=== PATIENT | female | born 1970 | race Caucasian/White ===

== ENCOUNTER 2016-08-03 06:08 | Observation (INO) | payer OTHER ==
[~2016-08-03 06:08] MED LIST: Buffered Lidocaine 0.9% SYRIN* 5 ML/SYR SYRINGE INTRADERM ONE; Famotidine IV* 10 MG/ML 2 ML (20 mg) IV ONE
[2016-08-03] MEDS ORDERED: Buffered Lidocaine 0.9% SYRIN* 5 ML/SYR SYRINGE ONE (06:18)
[2016-08-03] MEDS ORDERED: Famotidine IV* 10 MG/ML 2 ML (20 mg) ONE (06:18)
[2016-08-03 07:07] LABS: Hematocrit 41 % (35-47); Mean Corpuscular HGB Conc 34 g/dl (31-36); Mean Corpuscular Hemoglobin 34 pg (27-31); Mean Corpuscular Volume 99 fL (80-97); Mean Platelet Volume 9 um3 (7.4-10.4); Red Blood Count 4.17 10^6/ul (4.0-5.4); Red Cell Distribution Width 13 % (10.5-15); White Blood Count 6.4 10^3/ul (3.5-10.8)
[2016-08-03] MEDS ORDERED: Bupivacaine 0.5% W/EPI SDV* 10 ML VIAL INJ ONE ×2 (07:23)
[2016-08-03] MEDS ORDERED: Dexamethasone IV* 4 MG/ML 1 ML (4 MG) ONE (07:37)
[2016-08-03] MEDS ORDERED: DiMENhydriNATE IV* 50 MG/ML VIAL ONE (07:37)
[2016-08-03] MEDS ORDERED: Propofol* 10 MG/ML 20 ML BTL IV PUSH ONE (07:37)
[2016-08-03] MEDS ORDERED: Midazolam* 1 MG/ML 5 ML VIAL (5 MG) ONE (07:37)
[2016-08-03] MEDS ORDERED: Rocuronium* 10 MG/ML VIAL ONE (07:37)
[2016-08-03] MEDS ORDERED: Lidocaine 2% PF * 5 ML VIAL ONE (07:37)
[2016-08-03] MEDS ORDERED: fentaNYL* 50 MCG/ML 2 ML VIAL (100 MCG VIAL) ONE ×2 (07:37→08:20)
[2016-08-03] MEDS ORDERED: Succinylcholine* 20 MG/ML 10 ML VIAL ONE (07:37)
[2016-08-03] MEDS ORDERED: Ketorolac INJ* 30 MG/ML 1 ML VIAL ONE (07:37)
[2016-08-03] MEDS ORDERED: Ondansetron INJ* 2 MG/ML VIAL ONE (07:37)
[2016-08-03] MEDS ORDERED: Clindamycin 900 MG IVPREMIX(* 900 MG/50 ML SDV IV ONE (07:47)
[2016-08-03] MEDS ORDERED: Midazolam* 1 MG/ML 2 ML VIAL (2 MG) ONE (08:09)
[2016-08-03] MEDS ORDERED: HYDROmorphone* 1 MG/ML 1 ML SYR ONE ×2 (08:55→10:51)
[2016-08-03] MEDS ORDERED: Acetaminophen IV 1GM/100ML * 100 ML IVPB ONE (09:16)
[2016-08-03] MEDS ORDERED: DiMENhydriNATE IV* 50 MG/ML VIAL IV PUSH PRN (09:16)
[2016-08-03] MEDS ORDERED: HYDROmorphone* 1 MG/ML 1 ML SYR IV PRN ×2 (09:16→11:57)
[2016-08-03] MEDS ORDERED: Acetaminophen IV 1GM/100ML * 100 ML ONE (10:05)
[2016-08-03] MEDS ORDERED: oxyCODONE TAB* 5 MG TAB ONE ×2 (10:27→10:51)
[2016-08-03] MEDS: oxyCODONE TAB* 5 MG TAB PO PRN ×2 (10:28→10:51)
[2016-08-03] MEDS ORDERED: ALPRAZolam TAB* 0.5 MG PO PRN (12:52)
[2016-08-03] MEDS: Ibuprofen TAB* 600 MG PO SCH ×2 (15:30→20:56)
[2016-08-03] MEDS: Omeprazole CAP* 20 MG PO SCH (16:48)
[2016-08-03] MEDS: oxyCODONE/Acetamin 5/325 MG* TAB PO PRN ×2 (16:51→20:56)
[2016-08-03 17:26] LABS: Hematocrit 38 % (35-47); Hemoglobin 12.4 g/dl (12.0-16.0)
[2016-08-03] MEDS ORDERED: Cetirizine* 10 MG TAB PO SCH (18:00)
[2016-08-04] MEDS: Ibuprofen TAB* 600 MG PO SCH ×2 (03:37→09:25)
[2016-08-04] MEDS: oxyCODONE/Acetamin 5/325 MG* TAB PO PRN ×2 (06:16→10:17)
[2016-08-04] MEDS: Omeprazole CAP* 20 MG PO SCH (07:19)
[2016-08-04 07:32] VITALS: BP 129/80
--- NOTE | 2016-08-04 07:41 | OP ---
OPERATIVE REPORT: DATE OF OPERATION: 08/03/16 DATE OF : 70 SURGEON: Mumtaz Mcclelland MD [employer]: Dr. Polk. ANESTHESIA: General endotracheal tube. PRE-OP DIAGNOSES: Endometriosis, menorrhagia, and anemia. POST-OP DIAGNOSES: Endometriosis, menorrhagia, and anemia. OPERATIVE PROCEDURE: Supracervical hysterectomy and bilateral salpingo- oophorectomy. ESTIMATED BLOOD LOSS: 100 cc. SPECIMENS: Include uterus, tubes, and ovaries. COMPLICATIONS: None. FINDINGS: On laparoscopy, the anterior bladder flap appeared normal with some adhesions on the anterior vesicoperitoneal fold to the uterus. Posterior cul-de - sac was inflamed, but appeared normal. I did not see any obvious endometrial implants. Both ovaries appeared normal and the tubes fimbriated ends looked normal. Liver surface was smooth. The bowel appeared normal. DESCRIPTION OF PROCEDURE: The patient identified and procedure identified as a laparoscopic supracervical hysterectomy and BSO. The patient was taken to the operating room and prepped and draped in the usual fashion in the dorsal lithotomy position under general anesthesia. A [employer] uterine manipulator was placed into the uterus. A small infraumbilical incision was made and carried down through fat, fascia, and peritoneum. The GelPOINT mini was placed along with the port sites and the abdomen was insufflated to 15 mmHg. The above findings were noted. The left round ligament was grasped and ligated using the LigaSure. The infundibulopelvic ligament on the left side was grasped and ligated x2 and then incised using the LigaSure. The broad ligament was ligated using cautery and then incised. A bladder flap was created via sharp and blunt dissection and taking care to dissect the bladder carefully off the anterior vesicoperitoneal fold. The left uterine vessels were ligated using the LigaSure. Next, attention was then turned to the right side. The right round ligament was ligated using LigaSure and the infundibulopelvic ligament was ligated x2 and then using LigaSure and then incised. The broad ligament was incised using the LigaSure. A bladder flap was created via sharp and blunt dissection, and the bladder was dissected caudally. The right uterine vessels were ligated using the LigaSure x3 and then incised close to the uterus. At this point, further __cautery was carried out on the left uterine vessels. The SupraLoop was placed through one of the GelPOINT mini sites and got around the cervix at the cervicouterine junction above the uterine vessels placed on a 100 pure cut. The SupraLoop was used to excise the uterus from the cervix with care taken to make sure that there was no bowel or any other organs in the SupraLoop during its use. Hemostasis was provided using the LigaSure on the left uterine vessels. After the LigaSure there was a small bleed around that site. Copious irrigation was utilized and suctioned out. The GelPOINT mini was removed and a bag was placed. There were three attempts to place the uterus within the bag and each time the uterus fell out of the bag. Because the uterus was somewhat small, decision was made just to proceed with morcellation exteriorly using scissors, and care was taken to make sure that it was all taken out in one piece and that there was no pieces left inside. This was done against the GelPOINT mini Richard and so it was felt that the morcellation was well contained. Good hemostasis was verified using the LigaSure after the uterus has been excised. The fascia was then closed with 0 Polysorb in a running fashion. Good hemostasis was seen in the subcu and the skin was closed with 4-0 Vicryl in a subcuticular fashion and with the skin glue. All sponge and instrument counts were correct, and the patient was returned to the recovery room in stable condition. [id number]/[facility] #: [id number] KAILA
[2016-08-04] MEDS ORDERED: Cyanocobalamin TAB* 500 MCG PO SCH (09:00)
== END 2016-08-04 10:00 | disposition home or self-care (01) ==
LOC: OR 06:08 → SSU 11:28
PROVIDERS: ADMIT Obstetrics & Gynecology; ATTEND Obstetrics & Gynecology
PROC: 0UT24ZZ Resection of Bilateral Ovaries, Percutaneous Endoscopic Approach (ICD-10-PCS; 2016-08-03)
PROC: 0UT74ZZ Resection of Bilateral Fallopian Tubes, Percutaneous Endoscopic Approach (ICD-10-PCS; 2016-08-03)
PROC: 0UT94ZZ Resection of Uterus, Percutaneous Endoscopic Approach (ICD-10-PCS; principal; 2016-08-03 07:45)
DX: N80.9 Endometriosis, unspecified (principal); N92.0 Excessive and frequent menstruation with regular cycle; D64.9 Anemia, unspecified; Z88.1 Allergy status to other antibiotic agents; Z88.2 Allergy status to sulfonamides; Z88.0 Allergy status to penicillin; Z88.8 Allergy status to other drugs, medicaments and biological substances
CPT/HCPCS: 36415; 85014; 85018; 85025; 86850; 86900; 86901; 88307; A9270-GY; G0378; J0330; J1100; J1170; J1240; J1580; J1885; J2250; J2405; J2704; J3010

== ENCOUNTER 2018-03-31 22:01 | Emergency (ER) | payer OTHER ==
[2018-04-01] MEDS ORDERED: oxyCODONE/Acetamin 5/325 MG* TAB PO ONE (00:57)
[2018-04-01 01:41] LABS: Urine Appearance Clear; Urine Bacteria Absent (Absent); Urine Bilirubin Negative (Negative); Urine Blood Negative (Negative); Urine Color Yellow; Urine Glucose Negative (Negative); Urine Ketones Negative (Negative); Urine Nitrite Negative (Negative); Urine Protein Negative (Negative); Urine Red Blood Cell Absent (Absent); Urine Specific Gravity 1.004 (1.010-1.030); Urine Squamous Epithelial Cell Present (Absent); Urine Urobilinogen Negative (Negative); Urine White Blood Cell 2+(11-20/hpf) (Absent)
[2018-04-01] MEDS ORDERED: Nitrofurantoin Macrocrystals* 100 MG CAP PO ONE (02:25)
[2018-04-01 02:43] VITALS: BP 127/79
--- NOTE | 2018-04-01 02:57 | ED ---
Back Pain - HPI Summary HPI Summary: The patient is a 47 year old female who is presenting to the [facility] with a chief complaint of a lower back pain. The patient states that she has had back pain that is steady and maintainable for 1 year. The pain has worsened in her lower back since 1 week ago. The pain is also reported to be in the lower buttocks region. According to the patient, her rate of urination has also decreased and her frequency of urination has increased since the worsened lower back pain has started. The pain begins at her hip bone. The pain is also rated to be 2/10 in severity. The symptoms are alleviated by nothing. The symptoms are aggravated by nothing. - History of Current Complaint Chief Complaint: EDBackInjuryPain Stated Complaint: BACK PAIN/ABD PAIN Time Seen by Provider: 04/01/18 00:40 Hx Obtained From: Patient Onset/Duration: Gradual Onset, Lasting Weeks - 1 week, Still Present Timing: Constant Back Pain Location: Is Discrete @ - Lower back pain to buttocks Severity Initially: Mild Severity Currently: Mild Pain Intensity: 2 Pain Scale Used: 0-10 Numeric Aggravating Symptom(s): Nothing Alleviating Symptom(s): Nothing Associated Signs And Symptoms: Positive: Other - Frequent urination and lower "flow" of urine - Allergies/Home Medications Allergies/Adverse Reactions: Allergies Allergy/AdvReac Type Severity Reaction Status Date / Time amoxicillin [From Augmentin] Allergy Rash Verified 03/31/18 22:08 aspirin Allergy Bleeding Verified 03/31/18 22:08 cefdinir [From Omnicef] Allergy Rash Verified 03/31/18 22:08 cephalexin [From Keflex] Allergy Rash Verified 03/31/18 22:08 ciprofloxacin [From Cipro] Allergy Rash Verified 03/31/18 22:08 clavulanic acid Allergy Rash Verified 03/31/18 22:08 [From Augmentin] Sulfa (Sulfonamide Allergy Rash Verified 03/31/18 22:08 Antibiotics) Home Medications: Home Medications FLUoxetine CAP* [Prozac CAP*] 1 cap PO DAILY 04/01/18 [History Confirmed ] PMH/Surg Hx/FS Hx/Imm Hx Endocrine/Hematology History: Reports: Hx Anemia - low iron Denies: Hx Diabetes Cardiovascular History: Denies: Hx Hypertension, Hx Pacemaker/ICD, Other Cardiovascular Problems/ Disorders Respiratory History: Denies: Other Respiratory Problems/Disorders GI History: Reports: Hx Gastroesophageal Reflux Disease, Hx Irritable Bowel - not treated for Denies: Other GI Disorders Musculoskeletal History: Denies: Other Musculoskeletal History Sensory History: Reports: Hx Contacts or Glasses - glasses Denies: Hx Hearing Aid Opthamlomology History: Reports: Hx Contacts or Glasses - glasses Neurological History: Reports: Hx Headaches - chronic headaches Denies: Other Neuro Impairments/Disorders Psychiatric History: Reports: Hx Anxiety - on meds, Hx Depression - on meds, Hx Panic Disorder - GENERALIZED ANXIETY - Cancer History Hx Chemotherapy: No Hx Radiation Therapy: No - Surgical History Surgery Procedure, Year, and Place: TUBAL 1998. LAPARSCOPIC FOR ENDOMETRIOSIS. . HYSTERECTOMY. DEVIATED SEPTUM Hx Anesthesia Reactions: No Infectious Disease History: No Infectious Disease History: Denies: Traveled Outside the [place] in Last 30 Days - Family History Known Family History: Positive: Cardiac Disease, Hypertension - Social History Occupation: Employed Full-time Lives: With Family Alcohol Use: Daily Alcohol Amount: 2-4 PER DAY Hx Substance Use: No Substance Use Type: Reports: None Hx Tobacco Use: Yes Smoking Status (MU): Former Smoker Amount Used/How Often: PACK A DAY FOR 15 YRS Review of Systems Constitutional: Negative Eyes: Negative ENT: Negative Cardiovascular: Negative Respiratory: Negative Gastrointestinal: Negative Genitourinary: Other - Decreased urinary flow Positive: frequency Musculoskeletal: Other - Lower back pain; Buttocks pain Skin: Negative Neurological: Negative Psychological: Normal All Other Systems Reviewed And Are Negative: Yes Physical Exam - Summary Physical Exam Summary: VITAL SIGNS: Reviewed. GENERAL: Patient is a well-developed and nourished (FEMALE) who is lying comfortable in the stretcher. Patient is not in any acute respiratory distress. HEAD AND FACE: No signs of trauma. No ecchymosis, hematomas or skull depressions. No sinus tenderness. EYES: PERRLA, EOMI x 2, No injected conjunctiva, no nystagmus. EARS: Hearing grossly intact. Ear canals and tympanic membranes are within normal limits. MOUTH: Oropharynx within normal limits. NECK: Supple, trachea is midline, no adenopathy, no JVD, no carotid bruit, no c- spine tenderness, neck with full ROM. CHEST: Symmetric, no tenderness at palpation LUNGS: Clear to auscultation bilaterally. No wheezing or crackles. CVS: Regular rate and rhythm, S1 and S2 present, no murmurs or gallops appreciated. ABDOMEN: Soft, non-tender. No signs of distention. No rebound no guarding, and no masses palpated. Bowel sounds are normal. EXTREMITIES: FROM in all major joints, no edema, no cyanosis or clubbing. NEURO: Alert and oriented x 3. No acute neurological deficits. Speech is normal and follows commands. SKIN: Dry and warm Back: Tenderness over left lower buttocks Triage Information Reviewed: Yes Vital Signs On Initial Exam: Initial Vitals Temp Pulse Resp BP Pulse Ox 98.4 F 93 16 170/90 99 03/31/18 22:03 03/31/18 22:03 03/31/18 22:03 03/31/18 22:03 03/31/18 22:03 Vital Signs Reviewed: Yes Diagnostics - Vital Signs Vital Signs Temp Pulse Resp BP Pulse Ox 04/01/18 02:42 97.9 F 75 16 127/79 97 04/01/18 02:14 68 131/84 95 04/01/18 02:00 72 95 04/01/18 01:45 68 148/87 97 04/01/18 01:15 79 164/78 99 04/01/18 01:08 18 03/31/18 22:03 98.4 F 93 16 170/90 99 - Laboratory Lab Results: Lab Results 04/01/18 Range/Units 01:15 Urine Color Yellow Urine Appearance Clear Urine pH 6.0 (5-9) Ur Specific [place] 1.004 L (1.010-1.030) Urine Protein Negative (Negative) Urine Ketones Negative (Negative) Urine Blood Negative (Negative) Urine Nitrate Negative (Negative) Urine Bilirubin Negative (Negative) Urine Urobilinogen Negative (Negative) Ur Leukocyte Esterase 2+ A (Negative) Urine WBC (Auto) 2+(11-20/hpf) A (Absent) Urine RBC (Auto) Absent (Absent) Ur Squamous Epith Cells Present A (Absent) Urine Bacteria Absent (Absent) Urine Glucose Negative (Negative) Lab Statement: Any lab studies that have been ordered have been reviewed, and results considered in the medical decision making process. - CT Abdominal/Pelvic CT CT Interpretation Completed By: Radiologist Summary of CT Findings: A/P CT reveals as per radiologist No CT findings to correlate with patient's symptomatology. Specifically no. obstructing renal or ureteral calculi. The ED Physician has reviewed this radiology report Lumbar Spine CT CT Interpretation Completed By: Radiologist Summary of CT Findings: Lumbar Spine CT as per radiologist Mild multilevel lumbar spondylopathy. The ED Physician has reviewed this radiology report Back Pain Course/Dx - Course Course Of Treatment: The patient is a 47 year old female who is presenting to the [facility] with a chief complaint of lower back pain that is also present at the buttocks. In the [facility], the patient had a Abd/pelvic CT and Lumbar Spine CT taken. The patient has a history of chronic back pain for one year. The urinanalysis showed remarkable findings consistent with a UTI. The patient will be given antibiotics and discharged home with a dx of UTI and back pain. We recommend a follow up with her primary care physician in 1 to 2 days. - Diagnoses Provider Diagnoses: UTI (urinary tract infection), Back pain Discharge - Sign-Out/Discharge Documenting (check all that apply): Patient Departure - Discharge Home Patient Received Moderate/Deep Sedation with Procedure: No - Discharge Plan Condition: Stable Disposition: HOME Prescriptions: Nitrofurantoin Monohyd/M-Cryst [Macrobid 100 mg Capsule] 100 mg PO BID #14 cap oxyCODONE/Acetamin 5/325 MG* [Percocet 5/325 TAB*] 1 tab PO Q6H PRN #10 tab MDD 4 PRN Reason: Pain Patient Education Materials: Urinary Tract Infection in Women (ED), Back Pain ( ED) Referrals: Vira Bundy NP [Primary Care Provider] - Additional Instructions: RETURN TO THE EMERGENCY DEPARTMENT FOR CHANGING OR WORSENING SYMPTOMS. FOLLOW UP WITH Primary care physician IN 1-2 DAYS. - Attestation Statements Document Initiated by Akila: Yes Documenting Scribe: Jsoh Garcia Provider For Whom Akila is Documenting (Include Credential): Dr. Elin Wilburn Attestation: Josh Christiansen scribed for Dr. Ace Rosario on 04/01/18 at 0307. Status of Scribe Document: Ready
== END 2018-04-01 02:42 | disposition home or self-care (01) ==
LOC: ED 22:01
DX: N39.0 Urinary tract infection, site not specified (principal); M54.9 Dorsalgia, unspecified; R10.84 Generalized abdominal pain; Z87.891 Personal history of nicotine dependence; Z79.82 Long term (current) use of aspirin; Z88.0 Allergy status to penicillin; Z88.2 Allergy status to sulfonamides; F17.210 Nicotine dependence, cigarettes, uncomplicated
CPT/HCPCS: 72131; 74176; 81003; 81015; 87086; 99283; A9270-GY

== ENCOUNTER 2018-04-03 09:49 | Emergency (ER) | payer OTHER ==
[2018-04-03 11:11] VITALS: BP 131/82
--- NOTE | 2018-04-03 17:47 | ED ---
Back Pain - HPI Summary HPI Summary: Patient is a 47-year-old male who presents emergency department for ongoing left lower back pain that radiates to her left hip/groin. Patient states she is a history of some mild low back pain but not to this extent. She denies recent injuries or falls. She notes she does sit a lot at work. Patient was seen in the ER 3 days ago for similar complaints and had a urinalysis, CT scan of abdomen and pelvis as well as CT scan of lumbar spine. Patient was placed on antibiotics for possible UTI. Patient states she is prescribed Percocet but has not been taking them because they make her feel sick. Patient also notes that left lower pain radiates into her left upper thigh with intermittent pins and needles. She otherwise denies leg weakness, bowel or bladder incontinence or retention, fever, vomiting, diarrhea. History of hysterectomy. Symptoms are mild in severity. Movement makes symptoms worse. Nothing makes symptoms better. - History of Current Complaint Chief Complaint: EDUrogenitalProblems Stated Complaint: ABD PAIN Time Seen by Provider: 04/03/18 10:03 Pain Intensity: 8 - Allergies/Home Medications Allergies/Adverse Reactions: Allergies Allergy/AdvReac Type Severity Reaction Status Date / Time amoxicillin [From Augmentin] Allergy Rash Verified 04/03/18 10:01 aspirin Allergy Bleeding Verified 04/03/18 10:01 cefdinir [From Omnicef] Allergy Rash Verified 04/03/18 10:01 cephalexin [From Keflex] Allergy Rash Verified 04/03/18 10:01 ciprofloxacin [From Cipro] Allergy Rash Verified 04/03/18 10:01 clavulanic acid Allergy Rash Verified 04/03/18 10:01 [From Augmentin] Sulfa (Sulfonamide Allergy Rash Verified 04/03/18 10:01 Antibiotics) Home Medications: Home Medications Ascorbic Acid [Vitamin C] 1,000 mg PO DAILY 04/03/18 [History Confirmed 04/03/18 ] Benzonatate CAP* [Tessalon 100 MG CAP*] 1 - 2 cap PO TID PRN 04/03/18 [History Confirmed 04/03/18] Calcium + D Soft Chewable Tab 1 tab PO DAILY 04/03/18 [History Confirmed ] PMH/Surg Hx/FS Hx/Imm Hx Previously Healthy: Yes Endocrine/Hematology History: Reports: Hx Anemia - low iron Denies: Hx Diabetes Cardiovascular History: Denies: Hx Hypertension, Hx Pacemaker/ICD, Other Cardiovascular Problems/ Disorders Respiratory History: Denies: Other Respiratory Problems/Disorders GI History: Reports: Hx Gastroesophageal Reflux Disease, Hx Irritable Bowel - not treated for Denies: Other GI Disorders Musculoskeletal History: Denies: Other Musculoskeletal History Sensory History: Reports: Hx Contacts or Glasses - glasses Denies: Hx Hearing Aid Opthamlomology History: Reports: Hx Contacts or Glasses - glasses Neurological History: Reports: Hx Headaches - chronic headaches Denies: Other Neuro Impairments/Disorders Psychiatric History: Reports: Hx Anxiety - on meds, Hx Depression - on meds, Hx Panic Disorder - GENERALIZED ANXIETY - Cancer History Hx Chemotherapy: No Hx Radiation Therapy: No - Surgical History Surgery Procedure, Year, and Place: TUBAL 1998. LAPARSCOPIC FOR ENDOMETRIOSIS. . HYSTERECTOMY. DEVIATED SEPTUM Hx Anesthesia Reactions: No Infectious Disease History: No Infectious Disease History: Denies: Traveled Outside the [place] in Last 30 Days - Family History Known Family History: Positive: Cardiac Disease, Hypertension, Non-Contributory - Social History Occupation: Employed Full-time Lives: With Family Alcohol Use: Daily Alcohol Amount: 2-4 PER DAY Hx Substance Use: No Substance Use Type: Reports: None Hx Tobacco Use: Yes Smoking Status (MU): Former Smoker Amount Used/How Often: PACK A DAY FOR 15 YRS Review of Systems Constitutional: Negative Negative: Fever, Chills Cardiovascular: Negative Respiratory: Negative Gastrointestinal: Negative Negative: Abdominal Pain, Vomiting, Diarrhea Genitourinary: Negative Negative: dysuria, frequency, flank pain Positive: Other - left low back pain Skin: Negative Positive: Paresthesia - Left upper leg . Negative: Weakness, Numbness All Other Systems Reviewed And Are Negative: Yes Physical Exam Triage Information Reviewed: Yes Vital Signs On Initial Exam: Initial Vitals Temp Pulse Resp BP Pulse Ox 98.7 F 96 16 135/81 97 04/03/18 09:52 04/03/18 09:52 04/03/18 09:52 04/03/18 09:52 04/03/18 09:52 Vital Signs Reviewed: Yes Appearance: Positive: Well-Appearing - Pt. lying in bed flat in NAD. present. Skin: Positive: Warm, Dry Head/Face: Positive: Normal Head/Face Inspection Eyes: Positive: Normal, EOMI Neck: Positive: Supple Respiratory/Lung Sounds: Positive: Clear to Auscultation, Breath Sounds Present Cardiovascular: Positive: Normal, RRR Abdomen Description: Positive: Nontender, Soft Musculoskeletal: Positive: Other - Mild left flank pain. Pain over left SI joint. 5/5 strength in bilateral LEs. Neurological: Positive: Normal, CN Intact II-III Psychiatric: Positive: Affect/Mood Appropriate Diagnostics - Vital Signs Vital Signs Temp Pulse Resp BP Pulse Ox 04/03/18 11:10 97.8 F 71 16 131/82 96 04/03/18 09:52 98.7 F 96 16 135/81 97 - Laboratory Lab Statement: Any lab studies that have been ordered have been reviewed, and results considered in the medical decision making process. Back Pain Course/Dx - Course Course Of Treatment: Patient presenting for ongoing lower back pain. Urine culture from 3 days ago is negative for growth. She is afebrile and well- appearing. She is no neurological deficits on exam. Under CT of her lumbar spine she did have degenerative changes and mild disc bulge at L4-L5. Suspect patient's pain and radicular pain is secondary to lumbar etiology. We'll start patient on a course of anti-inflammatories and steroids. Patient is agreeable with this plan. Work excuse given. Advised to apply warm compresses, avoid heavy lifting. To call family doctor today for a close follow-up appointment. To return to the ER symptoms change or worsen. Patient understands and agrees with this plan. - Diagnoses Differential Diagnosis/HQI/PQRI: Positive: Arthritis, Herniated Disc, Strain, Sprain Provider Diagnoses: Lumbar strain Discharge - Sign-Out/Discharge Documenting (check all that apply): Patient Departure Patient Received Moderate/Deep Sedation with Procedure: No - Discharge Plan Condition: Good Disposition: HOME Prescriptions: methylPREDNISolone [Medrol Dosepak 4 MG*] 0 mg PO .SEE MARISA INSTRUCTION #1 tab Patient Education Materials: Low Back Strain (ED), Lumbar Radiculopathy (ED), Lower Back Exercises (ED) Forms: *Work Release Referrals: Vira Bundy NP [Primary Care Provider] - Additional Instructions: Call PCP today to schedule a close follow up appointment Take steroid pack as directed Ibuprofen 600mg every 8 hours x 1 week Apply warm compresses to back Gentle stretching and massage Stop antibiotic--urine culture was negative Return to ER if symptoms change or worsen - Billing Disposition and Condition Condition: GOOD Disposition: Home
== END 2018-04-03 11:10 | disposition home or self-care (01) ==
LOC: ED 09:49
DX: S39.012A Strain of muscle, fascia and tendon of lower back, initial encounter (principal); R10.9 Unspecified abdominal pain; M54.2 Cervicalgia; Z88.0 Allergy status to penicillin; Z88.2 Allergy status to sulfonamides; D64.9 Anemia, unspecified; Z87.891 Personal history of nicotine dependence; X58.XXXA Exposure to other specified factors, initial encounter; Y92.9 Unspecified place or not applicable
CPT/HCPCS: 99282

== ENCOUNTER 2018-04-07 14:24 | Emergency (ER) | payer OTHER ==
[2018-04-07] MEDS ORDERED: Ketorolac INJ* 30 MG/ML 1 ML VIAL IV ONE (15:59)
[2018-04-07] MEDS ORDERED: Diazepam TAB(*) 5 MG PO ONE (15:59)
[2018-04-07] MEDS ORDERED: Ondansetron ODT TAB* 4 MG PO ONE (16:02)
--- NOTE | 2018-04-07 16:32 | ED ---
Back Pain - HPI Summary HPI Summary: Patient complains of left lower back pain radiating to left hip and left thigh 1 week. Patient has been seen here twice already for same symptoms on 04/01 and 04/03. 04/01 patient had negative lumbar spine CT and negative abdomen pelvis CT. Diagnosed with UTI given Macrobid. Also given Percocet 10 tablets for back pain. Patient states she did not take Percocet as it made her nauseous. Patient seen again on 04/03 for same symptoms. Patient was given a prescription for prednisone taper and told to take ibuprofen. Patient has been compliant, status symptoms were improving and that she went back to work today and pain returned. Pain is worse with sitting, worse with movement. Continues to deny urinary retention, incontinence, fever, cough, sore throat, CP, SOB, N/V/D, abdominal pain. Patient does admit to chronic back pain which is generally mild and stable. - History of Current Complaint Chief Complaint: EDBackInjuryPain Stated Complaint: BACK/GLUTE PAIN Time Seen by Provider: 04/07/18 15:20 Hx Obtained From: Patient Onset/Duration: Gradual Onset, Lasting Days Onset/Duration: Started Days Ago Timing: Constant Severity Initially: Severe Severity Currently: Severe Pain Intensity: 9 Pain Scale Used: 0-10 Numeric Character: Sharp, Dull, Aching Associated Signs And Symptoms: Positive: Negative - Allergies/Home Medications Allergies/Adverse Reactions: Allergies Allergy/AdvReac Type Severity Reaction Status Date / Time amoxicillin [From Augmentin] Allergy Rash Verified 04/07/18 14:38 aspirin Allergy Bleeding Verified 04/07/18 14:38 cefdinir [From Omnicef] Allergy Rash Verified 04/07/18 14:38 cephalexin [From Keflex] Allergy Rash Verified 04/07/18 14:38 ciprofloxacin [From Cipro] Allergy Rash Verified 04/07/18 14:38 clavulanic acid Allergy Rash Verified 04/07/18 14:38 [From Augmentin] Sulfa (Sulfonamide Allergy Rash Verified 04/07/18 14:38 Antibiotics) PMH/Surg Hx/FS Hx/Imm Hx Endocrine/Hematology History: Reports: Hx Anemia - low iron Denies: Hx Diabetes Cardiovascular History: Denies: Hx Hypertension, Hx Pacemaker/ICD, Other Cardiovascular Problems/ Disorders Respiratory History: Denies: Other Respiratory Problems/Disorders GI History: Reports: Hx Gastroesophageal Reflux Disease, Hx Irritable Bowel - not treated for Denies: Other GI Disorders History: Denies: Hx Dialysis Musculoskeletal History: Denies: Hx Gout, Other Musculoskeletal History Sensory History: Reports: Hx Contacts or Glasses - glasses Denies: Hx Hearing Aid Opthamlomology History: Reports: Hx Contacts or Glasses - glasses Neurological History: Reports: Hx Headaches - chronic headaches Denies: Other Neuro Impairments/Disorders Psychiatric History: Reports: Hx Anxiety - on meds, Hx Depression - on meds, Hx Panic Disorder - GENERALIZED ANXIETY - Cancer History Hx Chemotherapy: No Hx Radiation Therapy: No - Surgical History Surgery Procedure, Year, and Place: TUBAL 1998. LAPARSCOPIC FOR ENDOMETRIOSIS. . HYSTERECTOMY. DEVIATED SEPTUM Hx Anesthesia Reactions: No Infectious Disease History: No Infectious Disease History: Denies: Traveled Outside the [place] in Last 30 Days - Family History Known Family History: Positive: Cardiac Disease, Hypertension, Non-Contributory - Social History Alcohol Use: Daily Alcohol Amount: 2-4 PER DAY Hx Substance Use: No Substance Use Type: Reports: None Hx Tobacco Use: Yes Smoking Status (MU): Former Smoker Amount Used/How Often: PACK A DAY FOR 15 YRS Review of Systems Constitutional: Negative Eyes: Negative ENT: Negative Cardiovascular: Negative Respiratory: Negative Gastrointestinal: Negative Genitourinary: Negative Musculoskeletal: Other Skin: Negative Neurological: Negative Psychological: Normal All Other Systems Reviewed And Are Negative: Yes Physical Exam - Summary Physical Exam Summary: Tenderness to along paraspinal muscles of L spine on left side. Mild tenderness to palpation of left gluteus. PMS intact distally in left lower extremity. Patient ambulatory. Triage Information Reviewed: Yes Vital Signs On Initial Exam: Initial Vitals Temp Pulse Resp BP Pulse Ox 98.5 F 76 16 149/99 100 04/07/18 14:34 04/07/18 14:34 04/07/18 14:34 04/07/18 14:34 04/07/18 14:34 Vital Signs Reviewed: Yes Appearance: Positive: Well-Appearing Skin: Positive: Warm Head/Face: Positive: Normal Head/Face Inspection Eyes: Positive: Normal Neck: Positive: Supple Respiratory/Lung Sounds: Positive: Clear to Auscultation Cardiovascular: Positive: Normal Abdomen Description: Positive: Nontender Musculoskeletal: Positive: Normal Neurological: Positive: Normal Psychiatric: Positive: Normal AVPU Assessment: Alert - [place] Coma Scale Best Eye Response: 4 - Spontaneous Best Motor Response: 6 - Obeys Commands Best Verbal Response: 5 - Oriented Coma Scale Total: 15 Diagnostics - Vital Signs Vital Signs Temp Pulse Resp BP Pulse Ox 04/07/18 16:12 16 04/07/18 14:34 98.5 F 76 16 149/99 100 - Laboratory Lab Statement: Any lab studies that have been ordered have been reviewed, and results considered in the medical decision making process. Back Pain Course/Dx - Course Course Of Treatment: Patient complains of left lower back pain radiating to left hip and left thigh 1 week. Patient has been seen here twice already for same symptoms on 04/01 and 04/03. 04/01 patient had negative lumbar spine CT and negative abdomen pelvis CT. Diagnosed with UTI given Macrobid. Also given Percocet 10 tablets for back pain. Patient states she did not take Percocet as it made her nauseous. Patient seen again on 04/03 for same symptoms. Patient was given a prescription for prednisone taper and told to take ibuprofen. Patient has been compliant, status symptoms were improving and that she went back to work today and pain returned. Pain is worse with sitting, worse with movement. Continues to deny urinary retention, incontinence, fever, cough, sore throat, CP, SOB, N/V/D, abdominal pain. Patient does admit to chronic back pain which is generally mild and stable. Physical exam:Tenderness to along paraspinal muscles of L spine on left side. Mild tenderness to palpation of left gluteus. PMS intact distally in left lower extremity. Patient ambulatory. Vital signs within normal limits. Rx for second prednisone taper. Rx for Flexeril. Rest - Diagnoses Provider Diagnoses: Sciatica Discharge - Sign-Out/Discharge Documenting (check all that apply): Patient Departure Patient Received Moderate/Deep Sedation with Procedure: No - Discharge Plan Condition: Stable Disposition: HOME Prescriptions: Cyclobenzaprine TAB* [Flexeril 10 MG TAB*] 10 mg PO TID PRN 6 Days #18 tab PRN Reason: Pain predniSONE TAB* [Deltasone 10 MG TAB*] 10 mg PO DAILY 12 Days #42 tab Patient Education Materials: Sciatica (ED), Lumbar Radiculopathy (ED), Lower Back Exercises (ED) Referrals: Vira Bundy NP [Primary Care Provider] - Additional Instructions: Take prednisone taper as directed. Take Flexeril as directed. May take ibuprofen 600 mg every 6 hours if needed. Rest for a few days. Follow-up with primary care. Return to the ED for any new or worsening symptoms. - Billing Disposition and Condition Condition: STABLE Disposition: Home
[2018-04-07 17:47] VITALS: BP 159/80
== END 2018-04-07 17:46 | disposition home or self-care (01) ==
LOC: ED 14:24
DX: M54.32 Sciatica, left side (principal); Z87.891 Personal history of nicotine dependence; D50.9 Iron deficiency anemia, unspecified; K21.9 Gastro-esophageal reflux disease without esophagitis; K58.9 Irritable bowel syndrome, unspecified; Z88.0 Allergy status to penicillin
CPT/HCPCS: 96374; 99282; A9270-GY; J1885

== ENCOUNTER 2018-06-27 08:09 | Emergency (ER) | payer OTHER ==
[2018-06-27] MEDS ORDERED: Dexamethasone IV* 4 MG/ML 1 ML (4 MG) IM ONE (08:23)
[2018-06-27] MEDS ORDERED: Ketorolac INJ* 60 MG/2 ML VIAL IM ONE (08:23)
[2018-06-27 08:27] VITALS: BP 166/79
--- NOTE | 2018-06-27 09:01 | UC ---
Back Pain HPI - HPI Summary HPI Summary: This patient is a 48-year-old female who presents to the emergency department with chief complaint of lower back pain mostly in the left side with radiation to the inguinal area and down to the leg. The patient reports that she has history of sciatic pain and she feels like this is similar pain as before. Patient denies any history of trauma or heavy lifting. She has no other complaints. She denies any urinary or fecal this dysfunction. She denies any fevers or chills. She denies any urinary tract infection symptoms. - History of Current Complaint Chief Complaint: UCBackPain Stated Complaint: LOWER ABD PAIN DOWN BUTTOCKS Time Seen by Provider: 06/27/18 08:16 Hx Obtained From: Patient Timing: Constant Pain Intensity: 7 - Allergies/Home Medications Allergies/Adverse Reactions: Allergies Allergy/AdvReac Type Severity Reaction Status Date / Time amoxicillin [From Augmentin] Allergy Rash Verified 06/27/18 08:29 cefdinir [From Omnicef] Allergy Rash Verified 06/27/18 08:29 cephalexin [From Keflex] Allergy Rash Verified 06/27/18 08:29 ciprofloxacin [From Cipro] Allergy Rash Verified 06/27/18 08:29 clavulanic acid Allergy Rash Verified 06/27/18 08:29 [From Augmentin] Sulfa (Sulfonamide Allergy Rash Verified 06/27/18 08:29 Antibiotics) aspirin AdvReac Bleeding Verified 06/27/18 08:29 PMH/Surg Hx/FS Hx/Imm Hx Previously Healthy: Yes Neurological History: Other - Back pain. sciatica - Surgical History Surgical History: Yes Surgery Procedure, Year, and Place: TUBAL 1997. LAPARSCOPIC FOR ENDOMETRIOSIS. . HYSTERECTOMY. DEVIATED SEPTUM - Family History Known Family History: Positive: Cardiac Disease, Hypertension, Non-Contributory - Social History Alcohol Use: Daily Alcohol Amount: 2-4 PER DAY Substance Use Type: None Smoking Status (MU): Former Smoker Amount Used/How Often: PACK A DAY FOR 15 YRS When Did the Patient Quit Smoking/Using Tobacco: 2007 Review of Systems All Other Systems Reviewed And Are Negative: Yes Constitutional: Positive: Negative Skin: Positive: Negative Eyes: Positive: Negative ENT: Positive: Negative Respiratory: Positive: Negative Cardiovascular: Positive: Negative Gastrointestinal: Positive: Negative Genitourinary: Positive: Negative Motor: Positive: Negative Neurovascular: Positive: Negative Musculoskeletal: Positive: Other: - positive left paraspinal muscle tenterness and left gluteus tenerness. Neurological: Positive: Negative Psychological: Positive: Negative Physical Exam - Summary Physical Exam Summary: General: Patient is a well developed female without any distress that is lying comfortably in the stretcher. Skin: [place], warm, dry HEAD AND FACE: No signs of trauma. EYES: PERRLA, EOMI x 2. EARS: Hearing grossly intact. MOUTH: Oropharynx within normal limits. NECK: Supple, trachea is midline, no adenopathy, no JVD. CHEST: Symmetric, no tenderness at palpation LUNGS: CTA bilaterally, no rales, rhonchi or wheezing CVS: RRR, no murmur, rub, or gallop ABDOMEN: soft and Nontender without masses, no guarding or rebound. Bowel sounds are active. No Hepatosplenomegaly. No signs of inguinal hernias. BACK: Patient walked in to the room with symmetric ambulation, No signs of limping, antalgic, able to bear weight. No signs of trauma, no soft tissue ecchymosis. Positive paraspinal muscle tenderness in the lumbar spine. No masses palpated. No point tenderness. No CVAT, no flank ecchymosis . No sacroiliac notch tenderness, No saddle anesthesia. ROM: flexion, extension, lateral bending and rotation limited secondary to pain. Straight Leg Raise: Negative. Positive at 60 degrees. Patellar reflexes: brisk, symmetric Muscle strength lower extremities: Dorsiflexion, plantar flexion of ankles normal. Heel, toe walk normal. Pulses: Femoral, popliteal, posterior tibial, and pedal pulses strong and palpable. Triage Information Reviewed: Yes Vital Signs: Initial Vital Signs Temp 99 F 06/27/18 08:23 Pulse 82 06/27/18 08:23 Resp 16 06/27/18 08:23 BP 166/79 06/27/18 08:23 Pulse Ox 97 06/27/18 08:23 Back Pain Course/Dx - Course Course Of Treatment: He since that the patient has a lower back pain and sciatic pain. Therefore the patient was given Decadron and Toradol in the urgent care. The patient will be discharged home with a prescription for Medrol Dosepak, ibuprofen and [place]. The patient will follow with the primary care physician in the next 3 days. If the symptoms worsen she should go to the emergency department for further workup and management. - Differential Dx/Diagnosis Provider Diagnosis: Acute back pain, Sciatic pain Discharge - Sign-Out/Discharge Documenting (check all that apply): Patient Departure All imaging exams completed and their final reports reviewed: No Studies - Discharge Plan Condition: Stable Disposition: HOME Prescriptions: Ibuprofen TAB* [Motrin TAB* 600 MG] 600 mg PO Q8H PRN #20 tab PRN Reason: Pain methylPREDNISolone [Medrol Dosepak 4 MG*] 0 mg PO .SEE MARISA INSTRUCTION #1 tab oxyCODONE/Acetamin 5/325 MG* [Percocet 5/325 TAB*] 1 tab PO Q6H PRN #10 tab MDD 4 PRN Reason: Pain Patient Education Materials: Acute Low Back Pain (ED), Lumbar Radiculopathy (ED ) Referrals: Vira Bundy VETER[employer] INSPECTOR [Primary Care Provider] - Additional Instructions: Patient will follow with PCP in the next 3 days. Continue good hydration. Take Tylenol or ibuprofen for pain or fever. Return to the urgent care if symptoms worsen. - Billing Disposition and Condition Condition: STABLE Disposition: Home
== END 2018-06-27 09:00 | disposition home or self-care (01) ==
LOC: UCEAST 08:09
DX: M54.42 Lumbago with sciatica, left side (principal); Z88.6 Allergy status to analgesic agent; Z88.1 Allergy status to other antibiotic agents; Z88.0 Allergy status to penicillin; Z88.2 Allergy status to sulfonamides; Z87.891 Personal history of nicotine dependence
CPT/HCPCS: 96372; 99212; G0463; J1100; J1885

== ENCOUNTER 2019-02-08 08:57 | Emergency (ER) | payer OTHER ==
--- OUTSIDE RECORDS SUMMARY | 2019-02-08 09:04 | XMS REPORT | Continuity of Care Document ---
:1970 External Reference #:[id number] Author Name Arabella Mcknight MD (transmitted by agent of provider Connie Cooney) Address [address], [address] [place] [id number] Care Team Providers Name Role Phone Vira Bundy NP - Family Care Team Information Child Life Assistant [phone] Problems Description No Information Available Social History Type Date Description Comments Sex Unknown ETOH Use Occasionally consumes beer Tobacco Use Start: Unknown End: Patient is a former quit June 14, 2008 Unknown smoker Smoked on & off for 20 years about 3/4 pack a day Recreational Drug Use Denies Drug Use Smoking Status Reviewed: 01/07/19 Patient is a former quit June 14, 2008 smoker Smoked on & off for 20 years about 3/4 pack a day Exercise Type/Frequency Exercises sporadically Allergies, Adverse Reactions, Alerts Active Allergies Reaction Severity Comments Date Omnicef rash 10/09/2013 Ceftin 10/09/2013 Augmentin 01/07/2019 Sulfa 01/07/2019 Medications Active Medications SIG Qnty Indications Ordering Provider Date Excedrin Migraine as needed Unknown [phone] Tablets Xanax by mouth as 30tabs Unknown 0.5mg Tablets needed Prilosec once a day before Unknown 40mg meal Capsules DR Iron (Ferrous Unknown Gluconate) Fish Oil 1 tab by mouth Unknown every day Vitamin B-12 Unknown Natural Calcium 500 + D3 1 tabs by mouth Unknown every day [id number] Tablets Cranberry 1 by mouth every Unknown Concentrate day 500mg Capsules Vitamin D High 1 by mouth every Unknown Potency day 1000Unit Capsules Aspirin 81 1 by mouth every Unknown 81mg day Tablets Loratadine once a day for Unknown 10mg allergies as Capsules needed [place] one drop each eye Unknown 0.7% Solution as as needed Fluoxetine HCL 1 by mouth every Unknown 20mg day Capsules Doxycycline Hyclate one tablet twice Unknown daily for 10 days. 100mg Capsules Immunizations Description No Information Available Vital Signs Date Vital Result Comment 01/07/2019 7:32am Height 61 inches 5'1" Weight 131.00 lb Heart Rate 76 /min BP Systolic Sitting 122 mmHg BP Diastolic Sitting 78 mmHg O2 % BldC Oximetry 98 % BMI (Body Mass Index) 24.7 kg/m2 Neck Circumference in inches 12.75 10/09/2013 1:02pm Weight 128.00 lb Heart Rate 68 /min BP Systolic Sitting 118 mmHg BP Diastolic Sitting 70 mmHg Results Description No Information Available Procedures Date Code Description Status 09/22/2018 39595 Diffusing Capacity Completed 09/22/2018 87099 Plethysmography Determination Lung Volumes & Per Airway Completed Resist 09/22/2018 28474 Pulmonary Function><Bronchodil Completed Medical Devices Description No Information Available Encounters Description No Information Available Assessments Date Code Description Provider 01/07/2019 R06.83 Snoring Arabella Mcknight MD 01/07/2019 R53.83 Other fatigue Arabella Mcknight MD 09/22/2018 R06.02 Shortness of breath Arabella Mcknight MD Plan of Treatment Future Appointment(s):02/03/2019 8:00 am - Tasha Smith NP at [facility]01/07/2019 - Arabella Mcknight, MDR06.83 SnoringNew Orders:Home Sleep Testing, Ordered: 01/07/19Follow up:3 [id number] Other fatigue Functional Status Description No Information Available Mental Status Description No Information Available Referrals Description No Information Available
--- OUTSIDE RECORDS SUMMARY | 2019-02-08 09:04 | XMS REPORT | Continuity of Care Document ---
:1970 External Reference #:[id number] Author Name Tasha Smith NP (transmitted by agent of provider Connie Cooney) Address [address], [address] [place] [id number] Care Team Providers Name Role Phone Vira Bundy NP - Family Care Team Information Gin Pole Operator [phone] Problems Description No Information Available Social History [...] Provider Date Excedrin Migraine as needed Unknown [phone] Tablets Xanax by mouth as 30tabs Unknown 0.5mg Tablets needed Prilosec once a day before Unknown 40mg meal Capsules DR Iron (Ferrous Unknown Gluconate) Fish Oil 1 tab by mouth Unknown every day Vitamin B-12 Unknown Natural Calcium 500 + D3 1 tabs by mouth Unknown every day [id number] Tablets Cranberry 1 by mouth every Unknown Concentrate day 500mg Capsules Vitamin D High 1 by mouth every Unknown Potency day 1000Unit Capsules Aspirin 81 1 by mouth every Unknown 81mg day Tablets Loratadine once a day for Unknown 10mg allergies as Capsules needed Fluoxetine HCL 1 by mouth every Unknown 20mg day Capsules Immunizations Description No Information Available Vital Signs Date Vital Result Comment 02/03/2019 8:12am Height 61 inches 5'1" Weight 130.00 lb Heart Rate 80 /min BP Systolic Sitting 146 mmHg Lue reg cuff BP Diastolic Sitting 118 mmHg Lue reg cuff O2 % BldC Oximetry 98 % On Ra BMI (Body Mass Index) 24.6 kg/m2 01/07/2019 7:32am Height 61 inches 5'1" Weight 131.00 lb Heart Rate 76 /min BP Systolic Sitting 122 mmHg BP Diastolic Sitting 78 mmHg O2 % BldC Oximetry 98 % BMI (Body Mass Index) 24.7 kg/m2 Neck Circumference in inches 12.75 Results Description No Information Available Procedures Date Code Description Status 01/14/2019 91088 Sleep Study Unattended,HRT Rate,Oxygen Sat,Resp Completed Effort/Airflow 09/22/2018 08478 Diffusing Capacity Completed 09/22/2018 10750 Plethysmography Determination Lung Volumes & Per Airway Completed Resist 09/22/2018 45415 Pulmonary Function><Bronchodil Completed Medical Devices Description No Information Available Encounters Type Date Location Provider Dx Diagnosis Office Visit 01/07/2019 [facility] Arabella Mcknight MD R06.83 Snoring 8:00a [facility] R53.83 Other fatigue Assessments Date Code Description Provider 02/03/2019 G47.33 Obstructive sleep apnea (adult) (pediatric) Tasha Smith NP 02/03/2019 R53.83 Other fatigue Tsaha Smith NP 01/14/2019 G47.33 Obstructive sleep apnea (adult) (pediatric) Arabella Mcknight MD 01/07/2019 R06.83 Snoring Arabella Mcknight MD 01/07/2019 R53.83 Other fatigue Arabella Mcknight MD 09/22/2018 R06.02 Shortness of breath Arabella Mcknight MD Plan of Treatment Future Appointment(s):03/20/2019 3:00 pm - Tasha Smith NP at [facility]02/03/2019 - Tasha Smith NPG47.33 Obstructive sleep apnea (adult) (pediatric)New Orders:Sleep-Homecare, Ordered: 02/03/19Follow up:6-8 weeks ([facility])Recommendations:You are being set up with CPAP for your sleep apnea through [facility] . They will call you to set up an appointment to get fit for a mask and grape picker your machine. If youhave difficulty with your equipment, or need to replace your mask or hoses, please contact your homecare agency. If you have any further questions, please call the [facility] at [phone] If you have any sleepiness while driving you MUST avoid operating a vehicle or machinery. If youfeel tired while driving, sheeting puller and take a nap or switch drivers. If you know you are sleepy andneed to go somewhere, arrange for a ride or use public transportation. It is very important to not risk your safety or the safety of others.R53.83 Other fatigue Functional Status Description No Information Available Mental Status Description No Information Available Referrals Description No Information Available
[2019-02-08 09:17] VITALS: BP 139/84
--- NOTE | 2019-02-08 09:28 | UC ---
Throat Pain/Nasal Aniceto HPI - HPI Summary HPI Summary: 48-year-old woman comes in with a chief complaint of sore throat rhinorrhea and right ear pain. Symptoms started about a week ago. Been using over-the- counter symptomatic treatment medications and has been helping with the symptoms however things are getting worse. Rhinorrhea is yellow. No fevers measured. Does have a postnasal drip which is causing her to cough. Denies any chest congestion. - History of Current Complaint Chief Complaint: UCGeneralIllness Stated Complaint: SORE THROAT COUGH EAR PAIN Time Seen by Provider: 02/08/19 09:07 Pain Intensity: 5 - Allergies/Home Medications Allergies/Adverse Reactions: Allergies Allergy/AdvReac Type Severity Reaction Status Date / Time amoxicillin [From Augmentin] Allergy Rash Verified 02/08/19 09:10 cefdinir [From Omnicef] Allergy Rash Verified 02/08/19 09:10 cephalexin [From Keflex] Allergy Rash Verified 02/08/19 09:10 ciprofloxacin [From Cipro] Allergy Rash Verified 02/08/19 09:10 clavulanic acid Allergy Rash Verified 02/08/19 09:10 [From Augmentin] dicyclomine [From Bentyl] Allergy Unknown Verified 02/08/19 09:10 Reaction Details Sulfa (Sulfonamide Allergy Rash Verified 02/08/19 09:10 Antibiotics) aspirin AdvReac Bleeding Verified 02/08/19 09:10 PMH/Surg Hx/FS Hx/Imm Hx Previously Healthy: Yes - Surgical History Surgical History: Yes Surgery Procedure, Year, and Place: TUBAL 1997. LAPARSCOPIC FOR ENDOMETRIOSIS. . HYSTERECTOMY. DEVIATED SEPTUM - Family History Known Family History: Positive: Cardiac Disease, Hypertension, Non-Contributory - Social History Alcohol Use: Daily Alcohol Amount: 4+ beers/ day Substance Use Type: None Smoking Status (MU): Former Smoker Amount Used/How Often: PACK A DAY FOR 15 YRS When Did the Patient Quit Smoking/Using Tobacco: 2007 Review of Systems All Other Systems Reviewed And Are Negative: Yes Constitutional: Positive: Other - see hpi Skin: Positive: Negative Eyes: Positive: Negative ENT: Positive: Sore Throat, Ear Ache, Nasal Discharge, Sinus Congestion Respiratory: Positive: Cough Cardiovascular: Positive: Negative Gastrointestinal: Positive: Negative Motor: Positive: Negative Neurovascular: Positive: Negative Musculoskeletal: Positive: Negative Neurological: Positive: Negative Psychological: Positive: Negative Is Patient Immunocompromised?: No Physical Exam Triage Information Reviewed: Yes Appearance: No Pain Distress, Well-Nourished, Ill-Appearing - mild Vital Signs: Initial Vital Signs Temp 99.3 F 02/08/19 09:11 Pulse 81 02/08/19 09:11 Resp 16 02/08/19 09:11 BP 139/84 02/08/19 09:11 Pulse Ox 97 02/08/19 09:11 Vital Signs Reviewed: Yes Eye Exam: Normal Eyes: Positive: Conjunctiva Clear ENT: Positive: Pharyngeal erythema, Nasal congestion, Nasal drainage, TMs normal Neck: Positive: Supple, Nontender Respiratory: Positive: Lungs clear, Normal breath sounds, No respiratory distress Cardiovascular: Positive: RRR Musculoskeletal: Positive: Strength Intact, ROM Intact Neurological: Positive: Alert, Muscle Tone Normal Psychological: Positive: Age Appropriate Behavior Skin: Positive: Rashes Throat Pain/Nasal Course/Dx - Course Course Of Treatment: DISCUSSED VIRAL VERSES BACTERIAL INFECTIONS AND THE ROLE OF ANTIBIOTICS. THE PATIENT PREFERS TO BE ON ANTIBIOTICS AT THIS TIME. - Differential Dx/Diagnosis Provider Diagnosis: Pharyngitis, Upper respiratory infection Discharge ED - Sign-Out/Discharge Documenting (check all that apply): Patient Departure All imaging exams completed and their final reports reviewed: No Studies - Discharge Plan Condition: Stable Disposition: HOME Prescriptions: Clindamycin Cap(NF) [Clindamycin Cap 300 mg Cap(NF)] 300 mg PO TID #30 cap Patient Education Materials: Pharyngitis (ED), Upper Respiratory Infection (ED) Referrals: Vira Bundy NP [Primary Care Provider] - Additional Instructions: FOLLOW UP WITH YOUR DOCTOR IF NOT COMPLETELY IMPROVED. GET REEVALUATED SOONER IF NOT IMPROVED OR WORSE OR ANY QUESTIONS OR CONCERNS. - Billing Disposition and Condition Condition: STABLE Disposition: Home
== END 2019-02-08 09:30 | disposition home or self-care (01) ==
LOC: UCEAST 08:57
DX: J02.9 Acute pharyngitis, unspecified (principal); J06.9 Acute upper respiratory infection, unspecified; J34.89 Other specified disorders of nose and nasal sinuses; Z87.891 Personal history of nicotine dependence; Z88.0 Allergy status to penicillin; Z88.1 Allergy status to other antibiotic agents; Z88.2 Allergy status to sulfonamides; Z88.6 Allergy status to analgesic agent
CPT/HCPCS: 87651; 99212; G0463

== ENCOUNTER 2020-02-05 10:17 | Inpatient (IN) ==
[2020-02-05 11:48] LABS: ABS Eosinophils 0.1 10^3/ul (0-0.6); ABS Lymphocytes 0.8 10^3/ul (1.0-4.8); ABS Monocytes 0.4 10^3/ul (0-0.8); ABS Neutrophils 3.8 10^3/ul (1.5-7.7); Eosinophil % 1.4 %; Hematocrit 37 % (35-47); Hemoglobin 12.9 g/dL (12.0-16.0); Lymphocyte % 15.5 %; Mean Corpuscular HGB Conc 35 g/dL (31-36); Mean Corpuscular Hemoglobin 33 pg (27-31); Mean Corpuscular Volume 96 fL (80-97); Mean Platelet Volume 8.8 fL (7.4-10.4); Platelet Count 206 10^3/uL (150-450); Red Blood Count 3.87 10^6 /uL (3.70-4.87); Red Cell Distribution Width 14 % (10-15); White Blood Count 5.2 10^3/uL (3.5-10.8)
[2020-02-05 12:05] LABS: ALT 16 U/L (7-52); AST 20 U/L (13-39); Albumin 4.4 g/dL (3.2-5.2); Albumin/Globulin Ratio 1.8 (1-3); Alkaline Phosphatase 88 U/L (34-104); Anion Gap 7 mmol/L (2-11); BUN/Creatinine Ratio 13.9 (8-20); Blood Urea Nitrogen 10 mg/dL (6-24); CO2 Carbon Dioxide 27 mmol/L (22-32); Calcium 9.1 mg/dL (8.6-10.3); Chloride 105 mmol/L (101-111); EGFR African American 104.2 (>60); EGFR Non-African American 86.1 (>60); Globulin 2.5 g/dL (2-4); Glucose 117 mg/dL (70-100); Potassium 3.7 mmol/L (3.5-5.0); Sodium 139 mmol/L (135-145); Total Protein 6.9 g/dL (6.4-8.9)
[2020-02-05 12:10] LABS: Troponin I 0.06 ng/mL (<0.03)
[2020-02-05] MEDS ORDERED: NS 0.9% 1000 ml BAG 1,000 ML IV ONE (12:44)
[2020-02-05] MEDS ORDERED: Heparin DRIP 25,000 UNITS BAG 25,000 UNITS/500 ML BAG IV SCH (13:30)
[2020-02-05] MEDS ORDERED: NS 0.9% 1000 ml BAG 1,000 ML IV SCH ×3 (13:45→16:00)
[2020-02-05] MEDS ORDERED: Heparin 5000 UNITS/ML 1 mL VIAL IV SCH (14:00)
[2020-02-05] MEDS ORDERED: Ondansetron 4 mg VIAL 2 MG/ML 2 ml VIAL IV PRN (14:19)
[2020-02-05] MEDS ORDERED: nitroGLYCERIN DRIP 25,000 MCG/250 ML BTL ONE (14:44)
[2020-02-05] MEDS ORDERED: VERAPAMIL 2.5 MG/ML 2 ML VIAL ** 5 mg/2 ml ONE (14:44)
[2020-02-05] MEDS ORDERED: Heparin 1,000 UNIT/ML 10 ml (10,000 UNITS) CATHLAB/DIALYSIS ONE (14:44)
[2020-02-05] MEDS ORDERED: Heparin 2 UNITS/ML 1000 mls 2,000 ML IV ONE (14:45)
[2020-02-05] MEDS ORDERED: Lidocaine 1% VIAL 10 MG/ML VIAL ONE (14:45)
[2020-02-05] MEDS ORDERED: fentaNYL 100 mcg/2 ml 50 MCG/ML VIAL ONE (14:46)
[2020-02-05] MEDS ORDERED: Iohexol 350 (CONTRAST) 200 ML MDV IV ONE (14:46)
[2020-02-05] MEDS ORDERED: Midazolam 5 mg/5 ml VIAL 1 mg/ml 5 ml VIAL (5 mg) ONE (14:46)
[2020-02-05 14:56] LABS: Troponin I 0.27 ng/mL (<0.03)
[2020-02-05] MEDS ORDERED: Metoprolol Tartrate 5 mg VIAL 5 ml VIAL (1 mg/ml) ONE (15:07)
[2020-02-05] MEDS ORDERED: Iohexol 350 (CONTRAST) 500 ML MDV IV ONE (17:23)
[2020-02-05 17:58] LABS: INR 0.99 (0.82-1.09)
[2020-02-05 18:00] LABS: BUN/Creatinine Ratio 11.3 (8-20); Calcium 8.4 mg/dL (8.6-10.3); EGFR African American 105.9 (>60); EGFR Non-African American 87.5 (>60); Potassium 3.4 mmol/L (3.5-5.0)
[2020-02-05 18:15] LABS: Troponin I 0.69 ng/mL (<0.03)
[2020-02-05] MEDS: Isosorbide Mononit ER 30mg TAB PO SCH (20:55)
[2020-02-06] MEDS ORDERED: Potassium Chlor 20 meq TAB.ER PO ONE (06:04)
[2020-02-06 06:22] LABS: BUN/Creatinine Ratio 9.9 (8-20); Calcium 8.5 mg/dL (8.6-10.3); EGFR African American 105.9 (>60); EGFR Non-African American 87.5 (>60); HDL Cholesterol 56.4 mg/dL; Potassium 3.8 mmol/L (3.5-5.0)
[2020-02-06 06:54] LABS: Magnesium 2.1 mg/dL (1.9-2.7)
[2020-02-06] MEDS: Isosorbide Mononit ER 30mg TAB PO SCH (09:52)
[2020-02-06 12:07] LABS: ABS Eosinophils 0.1 10^3/ul (0-0.6); ABS Lymphocytes 0.7 10^3/ul (1.0-4.8); ABS Monocytes 0.4 10^3/ul (0-0.8); ABS Neutrophils 4.7 10^3/ul (1.5-7.7); Eosinophil % 1.9 %; Hematocrit 34 % (35-47); Hemoglobin 11.5 g/dL (12.0-16.0); Lymphocyte % 11.6 %; Mean Corpuscular HGB Conc 34 g/dL (31-36); Mean Corpuscular Hemoglobin 33 pg (27-31); Mean Corpuscular Volume 96 fL (80-97); Mean Platelet Volume 8.7 fL (7.4-10.4); Platelet Count 201 10^3/uL (150-450); Red Blood Count 3.52 10^6 /uL (3.70-4.87); Red Cell Distribution Width 15 % (10-15)
[2020-02-06 12:20] LABS: Magnesium 2.2 mg/dL (1.9-2.7)
[2020-02-06 12:27] LABS: Troponin I 0.12 ng/mL (<0.03)
[2020-02-07 07:04] LABS: ABS Eosinophils 0.1 10^3/ul (0-0.6); ABS Lymphocytes 0.9 10^3/ul (1.0-4.8); ABS Monocytes 0.4 10^3/ul (0-0.8); ABS Neutrophils 2.9 10^3/ul (1.5-7.7); Eosinophil % 2.8 %; Hematocrit 35 % (35-47); Lymphocyte % 20.1 %; Mean Corpuscular HGB Conc 34 g/dL (31-36); Mean Corpuscular Hemoglobin 33 pg (27-31); Mean Corpuscular Volume 98 fL (80-97); Mean Platelet Volume 8.6 fL (7.4-10.4); Platelet Count 175 10^3/uL (150-450); Red Blood Count 3.61 10^6 /uL (3.70-4.87); Red Cell Distribution Width 14 % (10-15); White Blood Count 4.3 10^3/uL (3.5-10.8)
[2020-02-07 07:21] LABS: BUN/Creatinine Ratio 13.6 (8-20); C Reactive Protein 10.35 mg/L (<8.01); Calcium 9.1 mg/dL (8.6-10.3); EGFR African American 115.2 (>60); EGFR Non-African American 95.2 (>60); Potassium 3.7 mmol/L (3.5-5.0)
[2020-02-07] MEDS: Isosorbide Mononit ER 30mg TAB PO SCH (09:37)
[2020-02-07 09:56] LABS: Erythrocyte Sed Rate 11 mm/Hr (0-19)
[2020-02-07 12:05] VITALS: BP 126/76
== END 2020-02-07 14:57 | disposition home or self-care (01) | DRG 287 ==
LOC: ED 10:17 → ICU 15:05 → MEDTELE 02-06 08:06
PROVIDERS: ADMIT Internal Medicine Cardiovascular Disease; ATTEND Internal Medicine Cardiovascular Disease

== ENCOUNTER 2020-04-03 18:16 | Inpatient (IN) ==
[2020-04-03 18:46] LABS: ABS Lymphocytes 0.7 10^3/ul (1.0-4.8); ABS Monocytes 0.5 10^3/ul (0-0.8); ABS Neutrophils 5.6 10^3/ul (1.5-7.7); Eosinophil % 0.6 %; Hematocrit 38 % (35-47); Hemoglobin 12.9 g/dL (12.0-16.0); Lymphocyte % 9.8 %; Mean Corpuscular HGB Conc 34 g/dL (31-36); Mean Corpuscular Hemoglobin 34 pg (27-31); Mean Corpuscular Volume 99 fL (80-97); Mean Platelet Volume 8.8 fL (7.4-10.4); Platelet Count 201 10^3/uL (150-450); Red Blood Count 3.81 10^6 /uL (3.70-4.87); Red Cell Distribution Width 14 % (10-15); White Blood Count 6.8 10^3/uL (3.5-10.8)
[2020-04-03] MEDS ORDERED: NS 0.9% 1000 ml BAG 1,000 ML IV ONE (18:46)
[2020-04-03 18:51] LABS: INR 0.97 (0.82-1.09)
[2020-04-03] MEDS ORDERED: Heparin 5000 UNITS/ML 1 mL VIAL ONE (18:52)
[2020-04-03] MEDS ORDERED: Heparin - STEMI 5,000 UNITS/ML 1 ml VIAL IV ONE (18:53)
[2020-04-03 19:02] LABS: ALT 27 U/L (7-52); AST 27 U/L (13-39); Albumin 4.4 g/dL (3.2-5.2); Albumin/Globulin Ratio 1.9 (1-3); Alkaline Phosphatase 79 U/L (34-104); Anion Gap 10 mmol/L (2-11); BUN/Creatinine Ratio 20.3 (8-20); Blood Urea Nitrogen 16 mg/dL (6-24); CO2 Carbon Dioxide 24 mmol/L (22-32); Calcium 9.3 mg/dL (8.6-10.3); Chloride 106 mmol/L (101-111); EGFR African American 93.6 (>60); EGFR Non-African American 77.4 (>60); Globulin 2.3 g/dL (2-4); Glucose 109 mg/dL (70-100); Potassium 3.5 mmol/L (3.5-5.0); Sodium 140 mmol/L (135-145); Total Protein 6.7 g/dL (6.4-8.9)
[2020-04-03 19:10] LABS: Troponin I 0.12 ng/mL (<0.03)
[2020-04-03] MEDS ORDERED: VERAPAMIL 2.5 MG/ML 2 ML VIAL ** 5 mg/2 ml ONE (19:15)
[2020-04-03] MEDS ORDERED: Heparin 2 UNITS/ML 1000 mls 0 ML IV ONE (19:15)
[2020-04-03] MEDS ORDERED: Heparin 1,000 UNIT/ML 10 ml (10,000 UNITS) CATHLAB/DIALYSIS ONE (19:15)
[2020-04-03] MEDS ORDERED: nitroGLYCERIN DRIP 0 MCG/0 ML BTL ONE (19:15)
[2020-04-03] MEDS ORDERED: Midazolam 5 mg/5 ml VIAL 1 mg/ml 5 ml VIAL (5 mg) ONE (19:16)
[2020-04-03] MEDS ORDERED: Iohexol 350 (CONTRAST) 200 ML MDV IV ONE (19:16)
[2020-04-03] MEDS ORDERED: Lidocaine 1% VIAL 10 MG/ML VIAL ONE (19:16)
[2020-04-03] MEDS ORDERED: HYDROmorphone 1 MG/1 ML SYRINGE ONE (19:16)
[2020-04-03] MEDS ORDERED: diPHENhydraMINE IV 50 MG/ML 1 ml VIAL (BENADRYL) ONE (19:16)
[2020-04-03] MEDS ORDERED: nitroGLYCERIN DRIP 25,000 MCG/250 ML BTL IV ONE (19:38)
[2020-04-03] MEDS ORDERED: Heparin DRIP 25,000 UNITS BAG 25,000 UNITS/500 ML BAG IV SCH ×2 (19:45→20:30)
[2020-04-03] MEDS ORDERED: nitroGLYCERIN DRIP 25,000 MCG/250 ML BTL IV SCH (20:00)
[2020-04-03] MEDS ORDERED: Heparin 5000 UNITS/ML 1 mL VIAL IV SCH (20:00)
[2020-04-03] MEDS ORDERED: Ondansetron 4 mg VIAL 2 MG/ML 2 ml VIAL IV PRN (20:21)
[2020-04-03 22:39] LABS: Troponin I 0.35 ng/mL (<0.03)
[2020-04-04 01:00] LABS: Troponin I 0.48 ng/mL (<0.03)
[2020-04-04 05:20] LABS: ABS Eosinophils 0.1 10^3/ul (0-0.6); ABS Monocytes 0.4 10^3/ul (0-0.8); ABS Neutrophils 3.7 10^3/ul (1.5-7.7); Eosinophil % 1.2 %; Hematocrit 33 % (35-47); Hemoglobin 11.2 g/dL (12.0-16.0); Lymphocyte % 18.2 %; Mean Corpuscular HGB Conc 34 g/dL (31-36); Mean Corpuscular Hemoglobin 34 pg (27-31); Mean Corpuscular Volume 100 fL (80-97); Platelet Count 192 10^3/uL (150-450); Red Blood Count 3.31 10^6 /uL (3.70-4.87); Red Cell Distribution Width 14 % (10-15); White Blood Count 5.2 10^3/uL (3.5-10.8)
[2020-04-04 05:30] LABS: INR 1.02 (0.82-1.09)
[2020-04-04 05:46] LABS: Anion Gap 8 mmol/L (2-11); BUN/Creatinine Ratio 17.2 (8-20); Blood Urea Nitrogen 11 mg/dL (6-24); CO2 Carbon Dioxide 25 mmol/L (22-32); Calcium 8.8 mg/dL (8.6-10.3); Chloride 109 mmol/L (101-111); Cholesterol 152 mg/dL; EGFR African American 119.3 (>60); EGFR Non-African American 98.6 (>60); Glucose 108 mg/dL (70-100); HDL Cholesterol 66.4 mg/dL; LDL Cholesterol 58 mg/dL; Potassium 3.1 mmol/L (3.5-5.0); Sodium 142 mmol/L (135-145); Triglycerides 140 mg/dL
[2020-04-04] MEDS ORDERED: NS 0.9% 1000 ml BAG 1,000 ML IV SCH (06:00)
[2020-04-04] MEDS: KCL 10 MEQ/50 ML IVPREMIX 10 MEQ/50 ML BAG IV SCH ×3 (06:28→09:29)
[2020-04-04] MEDS ORDERED: Multivitamins/Minerals TAB PO SCH (09:00)
[2020-04-04] MEDS ORDERED: Aspirin EC 81 mg TAB.EC (enteric coated) PO SCH (09:00)
[2020-04-04 10:27] LABS: Phosphorus 2.9 mg/dL (2.5-5.0)
[2020-04-04 18:10] VITALS: BP 133/84
== END 2020-04-04 18:41 | disposition short-term general hospital (02) | DRG 303 ==
LOC: ED 18:16 → CHICATH 19:08 → ICU 21:03
PROVIDERS: ADMIT Internal Medicine Cardiovascular Disease; ATTEND Internal Medicine Critical Care Medicine